=== PATIENT | male | born 1980 | race Caucasian/White ===

== ENCOUNTER 2018-07-12 09:30 | Emergency (ER) | payer OTHER ==
[~2018-07-12] VITALS: Ht 193 cm; Wt 88.0 kg
[~2018-07-12 09:30] MED LIST: AMOX1TAB12 PO; MOTRIN800 MG PO
== END 2018-07-12 14:39 | disposition home or self-care (01) ==
LOC: ER 09:30
DX: K52.89 Other specified noninfective gastroenteritis and colitis (principal); E86.0 Dehydration